=== PATIENT | female | born 1950 | race Caucasian/White ===

== ENCOUNTER 2018-12-15 14:38 | Inpatient (IN) | payer MEDICARE, BC ==
[2018-12-15] MEDS ORDERED: Dextran 70/Hypromellose/PF Ophth Soln 0.9 ML UD EYEBOTH PRN ×2 (15:57→18:00)
[2018-12-15] MEDS ORDERED: Acetaminophen/oxyCODONE 325-5 MG Tab PO PRN (15:57)
--- NOTE | 2018-12-15 17:11 | PCM.HP ---
H&P History of Present Illness - General Date of Service: 12/15/18 Admit Problem/Dx: Admission Diagnosis/Problem Admission Diagnosis/Problem Pleural effusion Source of Information: Patient, Old Records - History of Present Illness Initial Comments - Free Text/Narative: This is a 68-year-old female who was admitted to the hospital with shortness of breath, from new, right-sided, pleural effusion. The patient has known, stage IV , breast cancer, followswith Marry Mcadams M.D., outpatient. She underwent thoracentesis, which revealed about 1.6 liters of fluid. Fluid analysis is transudative per Light's criteria but cytology pos. Fluid was nonbloody. Received a dose of Lasix and diuresed further. She has not been on any Lasix in the past. SOB improved. Still not walking great, wants cane for at home or more narrow walker. Lives alone. Remote smoking hx. FH Breast CA. 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 Healing normally, sutures out. Clinically feeling better. No new concerns. The patient, due to physical deconditioning, would benefit from transitioning to a SNF or swing bed. REVIEW OF SYSTEMS: CONSTITUTIONAL: No fever or chills. RESPIRATORY: No new cough or dyspnea. CARDIOVASCULAR: No chest pain or palpitations. ABDOMEN: No belly pain. Not eatint a lot CENTRAL NERVOUS SYSTEM: No headache or dizziness. PHYSICAL EXAMINATION: VITAL SIGNS: Reviewed. CONSTITUTIONAL: No distress. RESPIRATORY: Bilateral air entry present. CARDIOVASCULAR SYSTEM: RRR, no mrg. ABDOMEN: Soft and nontender. Bowel sounds present. CENTRAL NERVOUS SYSTEM: Alert, oriented x3. Well healing distal amp scar R great toe. Results for CADE SHIELDS ( ) as of 12/15/2018 17:07 Ref. Range 12/15/2018 08:39 12/15/2018 11:12 WBC Latest Ref Range: 4.0 - 11.0 K/uL 8.1 RBC Latest Ref Range: 3.80 - 5.30 M/uL 3.92 Hemoglobin Latest Ref Range: 11.5 - 15.8 g/dL 11.3 (L) Hematocrit Latest Ref Range: 35.0 - 45.0 % 35.0 MCV Latest Ref Range: 80.0 - 98.0 fL 89.3 MCH Latest Ref Range: 25.5 - 34.0 pg 28.8 MCHC Latest Ref Range: 31.5 - 36.5 g/dL 32.3 RDW-CV Latest Ref Range: 11.5 - 15.5 % 21.5 (H) RDW-SD Latest Ref Range: 35.5 - 50.0 fl 69.1 (H) Platelet Count Latest Ref Range: 140 - 400 K/uL 273 MPV Latest Ref Range: 8.5 - 12.0 fL 9.0 Seg Neut Absolute Latest Ref Range: 1.8 - 8.0 K/uL 6.6 Band Absolute Latest Ref Range: 0.0 - 0.7 K/uL 1.1 (H) Lymphocytes Absolute Latest Ref Range: 0.8 - 4.1 K/uL 0.2 (L) Monocytes Absolute Latest Ref Range: 0.0 - 1.0 K/uL 0.3 Neutrophils Abs. (Segs and Bands) Latest Units: /uL 7,614 Neutrophils Percent Latest Units: % 81.0 Band Percent Latest Units: % 13.0 Lymphocytes Percent Latest Units: % 2.0 Monocytes Percent Latest Units: % 4.0 Platelet Morphology Unknown Normal Elliptocytes/Ovalocytes Unknown 1+ Glucose Latest Ref Range: 70 - 100 mg/dL 98 Sodium Latest Ref Range: 135 - 145 meq/L 131 (L) Potassium Latest Ref Range: 3.5 - 5.3 meq/L 3.2 (L) Chloride Latest Ref Range: 99 - 110 meq/L 97 (L) CO2 Latest Ref Range: 20 - 29 meq/L 26 Anion Gap with K Latest Ref Range: 6 - 20 meq/L 11 BUN Latest Ref Range: 6 - 22 mg/dL 15 Creatinine Latest Ref Range: 0.60 - 1.10 mg/dL 0.74 BUN/Creatinine Ratio Latest Ref Range: 10.0 - 25.0 20.3 Calcium Latest Ref Range: 8.5 - 10.5 mg/dL 9.3 Corrected Calcium Latest Ref Range: 8.5 - 10.5 mg/dL 10.2 Phosphorus Latest Ref Range: 2.5 - 4.5 mg/dL 2.8 Magnesium Latest Ref Range: 1.8 - 2.4 mg/dL 1.7 (L) Albumin Latest Ref Range: 3.5 - 5.0 g/dL 2.9 (L) eGFR Latest Ref Range: >=60 mL/min/1.73m2 >90 eGFR Non- Latest Ref Range: >=60 mL/min/1.73m2 78 Glucose POC Latest Ref Range: 70 - 100 mg/dL 81 ASSESSMENT: 1. Shortness of breath secondary to rightmalignant pleural effusion.Stage IV breast cancer. 2. Hypomagnesemia. 3. Status post left hallux amputation. Completed antibiotics, healing well, per podiatry service. 4. Hypertension. 5. Gout. 6. Hypothyroid. 7. Dyslipidemia. 8. Mood disorder. 9. Bladder instability. 10. Chronic steroid use. PLAN: Hypertension, on atenolol and chlorthalidone with parameters. Hypokalemia secondary to chlorthalidone, replaced. Depression on Wellbutrin. Gout prevention on allopurinol. Hypothyroidism, replaced. Dyslipidemia, on Zocor. Bladder spasms, on VESIcare. Continue close monitoring of her cardiorespiratory status. Further oncological plans perDr. Abbe, on Stuent trial. Reviewed fluid collection report along the right humerus NOS, monitor for now in patient with widespread mets PT for strengthening, plan to return home Full code May need to consider hospice eval at some point in future - Related Data Allergies/Adverse Reactions: Allergies Allergy/AdvReac Type Severity Reaction Status Date / Time amoxicillin Allergy Nausea and Verified 12/15/18 16:50 Vomiting clavulanic acid Allergy Nausea and Verified 12/15/18 16:50 [From Augmentin] Vomiting anesthesia Allergy Nausea and Uncoded 12/15/18 16:50 Vomiting sulfa-drugs Allergy Other Uncoded 12/15/18 16:49 Home Medications: Home Meds Acetaminophen [Acetaminophen Extra Strength] 500 mg PO Q6H PRN 12/15/18 [History ] Allopurinol [Zyloprim] 100 mg PO DAILY 12/15/18 [History] Aspirin 325 mg PO DAILY 12/15/18 [History] Atenolol 1 tab PO DAILY 12/15/18 [History] Chlorthalidone 50 mg PO DAILY 12/15/18 [History] Dextran 70/Hypromellose [Artificial Tears] 1 drop EYEBOTH Q4H PRN 12/15/18 [ History] FLUoxetine HCl [Fluoxetine HCl] 40 mg PO DAILY 12/15/18 [History] Levothyroxine 175 mcg PO ASDIRECTED 12/15/18 [History] Loperamide [Imodium] 2 mg PO ASDIRECTED 12/15/18 [History] Magnesium Oxide 400 mg PO DAILY 12/15/18 [History] Multivitamin [Daily Multiple Vitamin] 1 tab PO DAILY 12/15/18 [History] Non-Formulary Medication [NF Drug] 1 cap PO DAILY 12/15/18 [History] Nystatin 100,000 units TOP BID PRN 12/15/18 [History] Phentermine HCl 37.5 mg PO DAILY 12/15/18 [History] Potassium Chloride [K-Tab] 2 tab PO BID 12/15/18 [History] Prochlorperazine [Compazine] 10 mg PO QID PRN 12/15/18 [History] Psyllium [Metamucil] 4 cap PO BEDTIME 12/15/18 [History] Sennosides/Docusate Sodium [Senna-Docusate Sodium Tablet] 1 tab PO BID PRN 12/15 [History] Simvastatin 10 mg PO BEDTIME 12/15/18 [History] Solifenacin [Vesicare] 5 mg PO DAILY 12/15/18 [History] Topiramate 100 mg PO BID 12/15/18 [History] buPROPion HCl [Wellbutrin Xl] 300 mg PO DAILY 12/15/18 [History] cycloSPORINE [Restasis] 1 each EYEBOTH BID PRN 12/15/18 [History] metFORMIN [Glucophage XR] 1 tab PO BID 12/15/18 [History] oxyCODONE HCl/Acetaminophen [Oxycodone-Acetaminophen 5-325] 1 tab PO Q6H PRN [History] predniSONE [Prednisone] 10 mg PO DAILY 12/15/18 [History] Past Medical History HEENT History: Reports: Cataract Respiratory History: Reports: Sleep Apnea Genitourinary History: Reports: Diabetic Nephropathy Musculoskeletal History: Reports: Amputation Endocrine/Metabolic History: Reports: Diabetes, Type II, Hypothyroidism Oncologic (Cancer) History: Reports: Breast, Metastatic - Past Surgical History HEENT Surgical History: Reports: Cataract Surgery Other HEENT Surgeries/Procedures: both eyes Respiratory Surgical History: Reports: Thoracentesis, Other (See Below) Other Respiratory Surgeries/Procedures: bronchoscopy GI Surgical History: Reports: Bariatric Procedure, Cholecystectomy Female Surgical History: Reports: Mastectomy, Other (See Below) Other Female Surgeries/Procedures: Right breast lumpectomy 2006, Right mastectomy Endocrine Surgical History: Reports: Thyroidectomy Musculoskeletal Surgical History: Reports: Amputation, Other (See Below) Other Musculoskeletal Surgeries/Procedures:: right hallux partial Oncologic Surgical History: Reports: Mastectomy Social & Family History - Family History Family Medical History: Noncontributory - Tobacco Use Smoking Status *Q: Former Smoker Years of Tobacco use: 2 Packs/Tins Daily: 1 Used Tobacco, but Quit: No Second Hand Smoke Exposure: No - Caffeine Use Caffeine Use: Reports: None - Recreational Drug Use Recreational Drug Use: No H&P Review of Systems - Review of Systems: Review Of Systems: See Below Exam - Exam Exam: See Below - Vital Signs Weight: 86.455 kg Problem List Initiated/Reviewed/Updated: Yes Orders Last 24hrs: Active Orders 24 hr Category Date Time Status Patient Status [ADT] Routine ADT 12/15/18 15:24 Active Acetaminophen [Tylenol Extra Strength] Med 12/15/18 15:57 Ordered 500 mg PO Q6H PRN Acetaminophen/oxyCODONE [Percocet 325-5 MG] Med 12/15/18 15:57 Ordered 1 tab PO Q6H PRN Allopurinol [Zyloprim] Med 12/16/18 08:00 Ordered 100 mg PO DAILY Aspirin [Aspirin] Med 12/16/18 08:00 Ordered 325 mg PO DAILY Atenolol [Tenormin] Med 12/16/18 08:00 Ordered 1 tab PO DAILY Chlorthalidone [Chlorthalidone] Med 12/16/18 08:00 Ordered 50 mg PO DAILY Dextran 70/Hypromellose [Artificial Tears] Med 12/15/18 15:57 Ordered 1 drop EYEBOTH Q4H PRN Docusate Sodium/Sennosides [Senna Plus] Med 12/15/18 15:57 Ordered 1 tab PO BID PRN FLUoxetine HCl [Fluoxetine HCl] Med 12/16/18 08:00 Ordered 40 mg PO DAILY Levothyroxine Med 12/15/18 16:00 Ordered 175 mcg PO ASDIRECTED Loperamide [Imodium] Med 12/15/18 16:00 Ordered 2 mg PO ASDIRECTED Magnesium Oxide Med 12/16/18 08:00 Ordered 400 mg PO DAILY Multivitamin [Daily Multiple Vitamin] Med 12/16/18 08:00 Ordered 1 tab PO DAILY Non-Formulary Medication [NF Drug] Med 12/16/18 08:00 Ordered 1 cap PO DAILY Nystatin [Nystatin] Med 12/15/18 15:57 Ordered 100,000 units TOP BID PRN Phentermine HCl [Phentermine HCl] Med 12/16/18 08:00 Ordered 37.5 mg PO DAILY Potassium Chloride [Klor-Con 10] Med 12/15/18 20:00 Ordered 2 tab PO BID Prochlorperazine [Compazine] Med 12/15/18 15:57 Ordered 10 mg PO QID PRN Psyllium [Metamucil] Med 12/15/18 20:00 Ordered 4 cap PO BEDTIME Simvastatin [Zocor] Med 12/15/18 20:00 Ordered 10 mg PO BEDTIME Solifenacin [Vesicare] Med 12/16/18 08:00 Ordered 5 mg PO DAILY Topiramate [Topiramate] Med 12/15/18 20:00 Ordered 100 mg PO BID buPROPion HCl [Wellbutrin Xl] Med 12/16/18 08:00 Ordered 300 mg PO DAILY cycloSPORINE [Restasis] Med 12/15/18 15:57 Ordered 1 each EYEBOTH BID PRN metFORMIN [Glucophage XR] Med 12/15/18 20:00 Ordered 1 tab PO BID predniSONE Med 12/16/18 08:00 Ordered 10 mg PO DAILY Medication Orders Acetaminophen (Tylenol Extra Strength) 500 mg PO Q6H PRN PRN Reason: mild pain Allopurinol (Zyloprim) 100 mg PO DAILY [facility] Atenolol (Tenormin) mg PO DAILY [facility] Levothyroxine Sodium (Levothyroxine) 175 mcg PO ASDIRECTED [facility] Loperamide HCl (Imodium) 2 mg PO ASDIRECTED [facility] Magnesium Oxide (Magnesium Oxide) 400 mg PO DAILY [facility] Non-Formulary Medication (Aspirin [Aspirin]) 325 mg PO DAILY [facility] Non-Formulary Medication (Bupropion Hcl [Wellbutrin Xl]) 300 mg PO DAILY [facility] Non-Formulary Medication (Chlorthalidone [Chlorthalidone]) 50 mg PO DAILY [facility] Non-Formulary Medication (Cyclosporine [Restasis]) 1 each EYEBOTH BID PRN PRN Reason: Dry Eyes Non-Formulary Medication (Dextran 70/Hypromellose [Artificial Tears]) 1 drop EYEBOTH Q4H PRN PRN Reason: Dry Eyes Non-Formulary Medication (Fluoxetine Hcl [Fluoxetine Hcl]) 40 mg PO DAILY [facility] Non-Formulary Medication (Metformin [Glucophage Xr]) 1 tab PO BID [facility] Non-Formulary Medication (Multivitamin [Daily Multiple Vitamin]) 1 tab PO DAILY [facility] Non-Formulary Medication (Nf Drug) each PO DAILY [facility] Non-Formulary Medication (Nystatin [Nystatin]) 100,000 units TOP BID PRN PRN Reason: Itching Non-Formulary Medication (Phentermine Hcl [Phentermine Hcl]) 37.5 mg PO DAILY [facility] Non-Formulary Medication (Prochlorperazine [Compazine]) 10 mg PO QID PRN PRN Reason: Nausea/Vomiting Non-Formulary Medication (Topiramate [Topiramate]) 100 mg PO BID [facility] Oxycodone/Acetaminophen (Percocet 325-5 Mg) 1 tab PO Q6H PRN PRN Reason: moderate pain Potassium Chloride (Klor-Con 10) meq PO BID [facility] Prednisone (Prednisone) 10 mg PO DAILY [facility] Psyllium Hydrophilic Mucilloid (Metamucil) gm PO BEDTIME [facility] Senna/Docusate Sodium (Senna Plus) 1 tab PO BID PRN PRN Reason: Constipation Simvastatin (Zocor) 10 mg PO BEDTIME [facility] Solifenacin (Vesicare) 5 mg PO DAILY [facility]
[2018-12-15] MEDS ORDERED: Ondansetron 4 MG Tab.DIS PO PRN (17:13)
[2018-12-15] MEDS ORDERED: metFORMIN 500 MG Tab PO SCH (18:00)
[2018-12-15] MEDS: Miconazole 2% Top Powder 45 GM Container TOP PRN (20:14)
[2018-12-15] MEDS: Topiramate 50 MG Tab PO SCH (20:16)
[2018-12-15] MEDS: Prochlorperazine 5 MG Tab PO PRN (20:16)
[2018-12-15] MEDS: Psyllium 0.52 GM Cap PO SCH (20:17)
[2018-12-15] MEDS: Simvastatin 10 MG Tab PO SCH (20:18)
[2018-12-15] MEDS: Potassium Chloride 20 MEQ Tab.ER PO SCH (20:18)
[2018-12-16] MEDS ORDERED: Non-Formulary Medication 1 Each PO SCH (08:00)
[2018-12-16] MEDS: Topiramate 50 MG Tab PO SCH ×2 (08:19→19:23)
[2018-12-16] MEDS: FLUoxetine 20 MG Cap PO SCH (08:19)
[2018-12-16] MEDS: Aspirin 325 MG Tab.EC PO SCH (08:19)
[2018-12-16] MEDS: Potassium Chloride 20 MEQ Tab.ER PO SCH ×2 (08:20→19:23)
[2018-12-16] MEDS: Allopurinol 100 MG Tab PO SCH (08:20)
[2018-12-16] MEDS: Multivitamin, Stress Formula with Zinc Tab PO SCH (08:20)
[2018-12-16] MEDS: Atenolol 50 MG Tab PO SCH (08:20)
[2018-12-16] MEDS: Magnesium Oxide 400 MG Tab PO SCH (08:20)
[2018-12-16] MEDS: predniSONE 10 MG Tab PO SCH (08:20)
[2018-12-16] MEDS: buPROPion 150 MG Tab.ER PO SCH (08:22)
[2018-12-16] MEDS: CHLORTHALIDONE 50 MG PO SCH (08:24)
[2018-12-16] MEDS: PHENTERMINE 37.5 MG PO SCH (08:25)
[2018-12-16] MEDS: [UNRECOGNIZED DRUG - OTHER] PO SCH (08:26)
[2018-12-16] MEDS ORDERED: [UNRECOGNIZED DRUG - OTHER] EYEBOTH PRN (09:31)
[2018-12-16] MEDS: Simvastatin 10 MG Tab PO SCH (19:24)
[2018-12-16] MEDS: Psyllium 0.52 GM Cap PO SCH (19:24)
[2018-12-17] MEDS: FLUoxetine 20 MG Cap PO SCH (07:38)
[2018-12-17] MEDS: buPROPion 150 MG Tab.ER PO SCH (07:38)
[2018-12-17] MEDS: Magnesium Oxide 400 MG Tab PO SCH (07:38)
[2018-12-17] MEDS: predniSONE 10 MG Tab PO SCH (07:39)
[2018-12-17] MEDS: Allopurinol 100 MG Tab PO SCH (07:39)
[2018-12-17] MEDS: Atenolol 50 MG Tab PO SCH (07:39)
[2018-12-17] MEDS: Topiramate 50 MG Tab PO SCH ×2 (07:39→20:05)
[2018-12-17] MEDS: Multivitamin, Stress Formula with Zinc Tab PO SCH (07:39)
[2018-12-17] MEDS: Potassium Chloride 20 MEQ Tab.ER PO SCH ×2 (07:39→20:06)
[2018-12-17] MEDS: [UNRECOGNIZED DRUG - OTHER] PO SCH (07:40)
[2018-12-17] MEDS: CHLORTHALIDONE 50 MG PO SCH (07:40)
[2018-12-17] MEDS: Aspirin 325 MG Tab.EC PO SCH (07:41)
[2018-12-17] MEDS: PHENTERMINE 37.5 MG PO SCH (07:41)
[2018-12-17] MEDS: Miconazole 2% Top Powder 45 GM Container TOP PRN (07:54)
[2018-12-17] MEDS: Psyllium 0.52 GM Cap PO SCH (20:05)
[2018-12-17] MEDS: Simvastatin 10 MG Tab PO SCH (20:06)
[2018-12-18] MEDS: Loperamide 2 MG Cap PO PRN (04:05)
[2018-12-18] MEDS: Topiramate 50 MG Tab PO SCH ×2 (07:33→19:58)
[2018-12-18] MEDS: Magnesium Oxide 400 MG Tab PO SCH (07:33)
[2018-12-18] MEDS: Aspirin 325 MG Tab.EC PO SCH (07:33)
[2018-12-18] MEDS: buPROPion 150 MG Tab.ER PO SCH (07:33)
[2018-12-18] MEDS: Atenolol 50 MG Tab PO SCH (07:33)
[2018-12-18] MEDS: FLUoxetine 20 MG Cap PO SCH (07:34)
[2018-12-18] MEDS: Allopurinol 100 MG Tab PO SCH (07:34)
[2018-12-18] MEDS: Potassium Chloride 20 MEQ Tab.ER PO SCH ×2 (07:34→19:57)
[2018-12-18] MEDS: Multivitamin, Stress Formula with Zinc Tab PO SCH (07:35)
[2018-12-18] MEDS: Loperamide 2 MG Cap PO SCH ×2 (07:35→19:58)
[2018-12-18] MEDS: [UNRECOGNIZED DRUG - OTHER] PO SCH (07:36)
[2018-12-18] MEDS: predniSONE 10 MG Tab PO SCH (07:36)
[2018-12-18] MEDS: CHLORTHALIDONE 50 MG PO SCH (07:38)
[2018-12-18] MEDS: PHENTERMINE 37.5 MG PO SCH (07:39)
[2018-12-18] MEDS: Miconazole 2% Top Powder 45 GM Container TOP PRN (07:48)
[2018-12-18] MEDS: Psyllium 0.52 GM Cap PO SCH (19:38)
[2018-12-18] MEDS: Simvastatin 10 MG Tab PO SCH (19:57)
[2018-12-19] MEDS: Loperamide 2 MG Cap PO PRN ×2 (01:07→11:10)
[2018-12-19] MEDS: Miconazole 2% Top Powder 45 GM Container TOP PRN (11:09)
[2018-12-19] MEDS: Multivitamin, Stress Formula with Zinc Tab PO SCH (11:09)
[2018-12-19] MEDS: buPROPion 150 MG Tab.ER PO SCH (11:09)
[2018-12-19] MEDS: Potassium Chloride 20 MEQ Tab.ER PO SCH ×2 (11:09→19:30)
[2018-12-19] MEDS: FLUoxetine 20 MG Cap PO SCH (11:10)
[2018-12-19] MEDS: predniSONE 10 MG Tab PO SCH (11:10)
[2018-12-19] MEDS: Aspirin 325 MG Tab.EC PO SCH (11:10)
[2018-12-19] MEDS: Magnesium Oxide 400 MG Tab PO SCH (11:10)
[2018-12-19] MEDS: Atenolol 50 MG Tab PO SCH (11:10)
[2018-12-19] MEDS: PHENTERMINE 37.5 MG PO SCH (11:11)
[2018-12-19] MEDS: Topiramate 50 MG Tab PO SCH ×2 (11:11→19:31)
[2018-12-19] MEDS: Allopurinol 100 MG Tab PO SCH (11:11)
[2018-12-19] MEDS: [UNRECOGNIZED DRUG - OTHER] PO SCH (11:11)
[2018-12-19] MEDS: CHLORTHALIDONE 50 MG PO SCH (11:19)
[2018-12-19] MEDS: Simvastatin 10 MG Tab PO SCH (19:31)
[2018-12-19] MEDS: Psyllium 0.52 GM Cap PO SCH (19:31)
[2018-12-19] MEDS: Acetaminophen 500 MG Tab PO PRN (19:38)
[2018-12-20] MEDS: PHENTERMINE 37.5 MG PO SCH (08:26)
[2018-12-20] MEDS: [UNRECOGNIZED DRUG - OTHER] PO SCH (08:26)
[2018-12-20] MEDS: CHLORTHALIDONE 50 MG PO SCH (08:27)
[2018-12-20] MEDS: Potassium Chloride 20 MEQ Tab.ER PO SCH ×2 (08:28→19:46)
[2018-12-20] MEDS: Topiramate 50 MG Tab PO SCH ×2 (08:29→19:46)
[2018-12-20] MEDS: buPROPion 150 MG Tab.ER PO SCH (08:29)
[2018-12-20] MEDS: Aspirin 325 MG Tab.EC PO SCH (08:29)
[2018-12-20] MEDS: Allopurinol 100 MG Tab PO SCH (08:29)
[2018-12-20] MEDS: predniSONE 10 MG Tab PO SCH (08:30)
[2018-12-20] MEDS: Multivitamin, Stress Formula with Zinc Tab PO SCH (08:30)
[2018-12-20] MEDS: FLUoxetine 20 MG Cap PO SCH (08:30)
[2018-12-20] MEDS: Atenolol 50 MG Tab PO SCH (08:32)
[2018-12-20] MEDS: Magnesium Oxide 400 MG Tab PO SCH (08:36)
[2018-12-20] MEDS: Loperamide 2 MG Cap PO PRN (08:40)
[2018-12-20] MEDS: Simvastatin 10 MG Tab PO SCH (19:46)
[2018-12-20] MEDS: Psyllium 0.52 GM Cap PO SCH (19:47)
[2018-12-20] MEDS: Loperamide 2 MG Cap PO SCH (20:31)
[2018-12-21] MEDS: Prochlorperazine 5 MG Tab PO PRN (05:25)
[2018-12-21] MEDS: Allopurinol 100 MG Tab PO SCH (12:37)
[2018-12-21] MEDS: FLUoxetine 20 MG Cap PO SCH (12:37)
[2018-12-21] MEDS: Magnesium Oxide 400 MG Tab PO SCH (12:37)
[2018-12-21] MEDS: Atenolol 50 MG Tab PO SCH (12:37)
[2018-12-21] MEDS: buPROPion 150 MG Tab.ER PO SCH (12:37)
[2018-12-21] MEDS: predniSONE 10 MG Tab PO SCH (12:37)
[2018-12-21] MEDS: Multivitamin, Stress Formula with Zinc Tab PO SCH (12:37)
[2018-12-21] MEDS: [UNRECOGNIZED DRUG - OTHER] PO SCH (12:38)
[2018-12-21] MEDS: Aspirin 325 MG Tab.EC PO SCH (12:38)
[2018-12-21] MEDS: PHENTERMINE 37.5 MG PO SCH (12:38)
[2018-12-21] MEDS: CHLORTHALIDONE 50 MG PO SCH (12:39)
[2018-12-21] MEDS: Topiramate 50 MG Tab PO SCH ×2 (12:44→20:08)
[2018-12-21] MEDS: Potassium Chloride 20 MEQ Tab.ER PO SCH (12:44)
[2018-12-21] MEDS: Potassium Chloride 10 MEQ Tab.ER PO SCH (18:18)
[2018-12-21] MEDS: Simvastatin 10 MG Tab PO SCH (20:09)
[2018-12-21] MEDS: Psyllium 0.52 GM Cap PO SCH (20:10)
[2018-12-22] MEDS: Loperamide 2 MG Cap PO SCH ×2 (04:31→08:25)
[2018-12-22] MEDS: PHENTERMINE 37.5 MG PO SCH (08:25)
[2018-12-22] MEDS: predniSONE 10 MG Tab PO SCH (08:25)
[2018-12-22] MEDS: Multivitamin, Stress Formula with Zinc Tab PO SCH (08:25)
[2018-12-22] MEDS: Aspirin 325 MG Tab.EC PO SCH (08:25)
[2018-12-22] MEDS: Miconazole 2% Top Powder 45 GM Container TOP PRN (08:25)
[2018-12-22] MEDS: buPROPion 150 MG Tab.ER PO SCH (08:26)
[2018-12-22] MEDS: Topiramate 50 MG Tab PO SCH ×2 (08:26→19:45)
[2018-12-22] MEDS: FLUoxetine 20 MG Cap PO SCH (08:26)
[2018-12-22] MEDS: Allopurinol 100 MG Tab PO SCH (08:26)
[2018-12-22] MEDS: Atenolol 50 MG Tab PO SCH (08:26)
[2018-12-22] MEDS: Magnesium Oxide 400 MG Tab PO SCH (08:26)
[2018-12-22] MEDS: Potassium Chloride 10 MEQ Tab.ER PO SCH ×2 (08:26→17:58)
[2018-12-22] MEDS: CHLORTHALIDONE 50 MG PO SCH (08:27)
[2018-12-22] MEDS: [UNRECOGNIZED DRUG - OTHER] PO SCH (08:27)
[2018-12-22] MEDS: Psyllium 0.52 GM Cap PO SCH (19:45)
[2018-12-22] MEDS: Simvastatin 10 MG Tab PO SCH (19:45)
[2018-12-23] MEDS: [UNRECOGNIZED DRUG - OTHER] PO SCH (09:07)
[2018-12-23] MEDS: PHENTERMINE 37.5 MG PO SCH (09:08)
[2018-12-23] MEDS: Miconazole 2% Top Powder 45 GM Container TOP PRN (09:09)
[2018-12-23] MEDS: FLUoxetine 20 MG Cap PO SCH (09:09)
[2018-12-23] MEDS: CHLORTHALIDONE 50 MG PO SCH (09:09)
[2018-12-23] MEDS: Topiramate 50 MG Tab PO SCH ×2 (09:10→20:58)
[2018-12-23] MEDS: predniSONE 10 MG Tab PO SCH (09:10)
[2018-12-23] MEDS: Aspirin 325 MG Tab.EC PO SCH (09:10)
[2018-12-23] MEDS: Atenolol 50 MG Tab PO SCH (09:10)
[2018-12-23] MEDS: Allopurinol 100 MG Tab PO SCH (09:11)
[2018-12-23] MEDS: Potassium Chloride 10 MEQ Tab.ER PO SCH ×2 (09:11→17:59)
[2018-12-23] MEDS: Multivitamin, Stress Formula with Zinc Tab PO SCH (09:11)
[2018-12-23] MEDS: buPROPion 150 MG Tab.ER PO SCH (09:12)
[2018-12-23] MEDS: Magnesium Oxide 400 MG Tab PO SCH (09:12)
[2018-12-23] MEDS: Simvastatin 10 MG Tab PO SCH (20:59)
[2018-12-23] MEDS: Psyllium 0.52 GM Cap PO SCH (23:35)
[2018-12-24] MEDS: Acetaminophen 500 MG Tab PO PRN ×2 (07:39→20:19)
[2018-12-24] MEDS: Topiramate 50 MG Tab PO SCH ×2 (08:55→20:20)
[2018-12-24] MEDS: FLUoxetine 20 MG Cap PO SCH (08:55)
[2018-12-24] MEDS: Multivitamin, Stress Formula with Zinc Tab PO SCH (08:55)
[2018-12-24] MEDS: Aspirin 325 MG Tab.EC PO SCH (08:55)
[2018-12-24] MEDS: predniSONE 10 MG Tab PO SCH (08:55)
[2018-12-24] MEDS: Atenolol 50 MG Tab PO SCH (08:55)
[2018-12-24] MEDS: buPROPion 150 MG Tab.ER PO SCH (08:55)
[2018-12-24] MEDS: Magnesium Oxide 400 MG Tab PO SCH (08:55)
[2018-12-24] MEDS: Allopurinol 100 MG Tab PO SCH (08:55)
[2018-12-24] MEDS: Potassium Chloride 10 MEQ Tab.ER PO SCH ×2 (08:57→17:37)
[2018-12-24] MEDS: CHLORTHALIDONE 50 MG PO SCH (08:58)
[2018-12-24] MEDS: PHENTERMINE 37.5 MG PO SCH (12:00)
[2018-12-24] MEDS: [UNRECOGNIZED DRUG - OTHER] PO SCH (16:18)
[2018-12-24] MEDS: Psyllium 0.52 GM Cap PO SCH (20:20)
[2018-12-24] MEDS: Simvastatin 10 MG Tab PO SCH (20:21)
[2018-12-25] MEDS: Magnesium Oxide 400 MG Tab PO SCH (07:56)
[2018-12-25] MEDS: Aspirin 325 MG Tab.EC PO SCH (07:56)
[2018-12-25] MEDS: Topiramate 50 MG Tab PO SCH ×2 (07:56→19:43)
[2018-12-25] MEDS: Atenolol 50 MG Tab PO SCH (07:56)
[2018-12-25] MEDS: FLUoxetine 20 MG Cap PO SCH (07:56)
[2018-12-25] MEDS: predniSONE 10 MG Tab PO SCH (07:56)
[2018-12-25] MEDS: Potassium Chloride 10 MEQ Tab.ER PO SCH ×2 (07:57→17:58)
[2018-12-25] MEDS: Allopurinol 100 MG Tab PO SCH (07:57)
[2018-12-25] MEDS: buPROPion 150 MG Tab.ER PO SCH (07:57)
[2018-12-25] MEDS: Multivitamin, Stress Formula with Zinc Tab PO SCH (07:57)
[2018-12-25] MEDS: CHLORTHALIDONE 50 MG PO SCH (07:58)
[2018-12-25] MEDS: PHENTERMINE 37.5 MG PO SCH (07:59)
[2018-12-25] MEDS: Psyllium 0.52 GM Cap PO SCH (19:42)
[2018-12-25] MEDS: Simvastatin 10 MG Tab PO SCH (19:42)
[2018-12-26] MEDS: Topiramate 50 MG Tab PO SCH ×2 (08:05→20:38)
[2018-12-26] MEDS: Multivitamin, Stress Formula with Zinc Tab PO SCH (08:06)
[2018-12-26] MEDS: Potassium Chloride 10 MEQ Tab.ER PO SCH ×2 (08:06→17:22)
[2018-12-26] MEDS: Aspirin 325 MG Tab.EC PO SCH (08:06)
[2018-12-26] MEDS: buPROPion 150 MG Tab.ER PO SCH (08:06)
[2018-12-26] MEDS: FLUoxetine 20 MG Cap PO SCH (08:07)
[2018-12-26] MEDS: predniSONE 10 MG Tab PO SCH (08:07)
[2018-12-26] MEDS: Atenolol 50 MG Tab PO SCH (08:07)
[2018-12-26] MEDS: Magnesium Oxide 400 MG Tab PO SCH (08:07)
[2018-12-26] MEDS: Allopurinol 100 MG Tab PO SCH (08:07)
[2018-12-26] MEDS: CHLORTHALIDONE 50 MG PO SCH (08:08)
[2018-12-26] MEDS: PHENTERMINE 37.5 MG PO SCH (08:08)
[2018-12-26] MEDS: Acetaminophen 500 MG Tab PO PRN (16:54)
[2018-12-26] MEDS: Psyllium 0.52 GM Cap PO SCH (20:38)
[2018-12-26] MEDS: Simvastatin 10 MG Tab PO SCH (20:38)
[2018-12-27] MEDS: Topiramate 50 MG Tab PO SCH ×2 (08:19→19:58)
[2018-12-27] MEDS: Aspirin 325 MG Tab.EC PO SCH (08:19)
[2018-12-27] MEDS: Allopurinol 100 MG Tab PO SCH (08:19)
[2018-12-27] MEDS: buPROPion 150 MG Tab.ER PO SCH (08:19)
[2018-12-27] MEDS: Multivitamin, Stress Formula with Zinc Tab PO SCH (08:19)
[2018-12-27] MEDS: FLUoxetine 20 MG Cap PO SCH (08:19)
[2018-12-27] MEDS: Atenolol 50 MG Tab PO SCH (08:19)
[2018-12-27] MEDS: Potassium Chloride 10 MEQ Tab.ER PO SCH ×2 (08:19→17:52)
[2018-12-27] MEDS: PHENTERMINE 37.5 MG PO SCH (08:20)
[2018-12-27] MEDS: predniSONE 10 MG Tab PO SCH (08:20)
[2018-12-27] MEDS: Magnesium Oxide 400 MG Tab PO SCH (08:20)
[2018-12-27] MEDS: Miconazole 2% Top Powder 45 GM Container TOP PRN (08:21)
[2018-12-27] MEDS: Acetaminophen 500 MG Tab PO PRN (08:23)
[2018-12-27] MEDS: Chlorthalidone 25 MG Tab PO SCH (08:43)
[2018-12-27] MEDS ORDERED: Calcium Carbonate 750 MG Tab.Chew PO PRN (13:59)
[2018-12-27] MEDS: Simvastatin 10 MG Tab PO SCH (19:58)
[2018-12-27] MEDS: Psyllium 0.52 GM Cap PO SCH (19:59)
[2018-12-28] MEDS: predniSONE 10 MG Tab PO SCH (08:25)
[2018-12-28] MEDS: FLUoxetine 20 MG Cap PO SCH (08:25)
[2018-12-28] MEDS: Magnesium Oxide 400 MG Tab PO SCH (08:25)
[2018-12-28] MEDS: Atenolol 50 MG Tab PO SCH (08:26)
[2018-12-28] MEDS: Allopurinol 100 MG Tab PO SCH (08:26)
[2018-12-28] MEDS: buPROPion 150 MG Tab.ER PO SCH (08:26)
[2018-12-28] MEDS: Aspirin 325 MG Tab.EC PO SCH (08:26)
[2018-12-28] MEDS: Topiramate 50 MG Tab PO SCH ×2 (08:26→20:09)
[2018-12-28] MEDS: Potassium Chloride 10 MEQ Tab.ER PO SCH ×2 (08:26→18:37)
[2018-12-28] MEDS: PHENTERMINE 37.5 MG PO SCH (08:26)
[2018-12-28] MEDS: Chlorthalidone 25 MG Tab PO SCH (08:27)
[2018-12-28] MEDS: Multivitamin, Stress Formula with Zinc Tab PO SCH (08:27)
[2018-12-28] MEDS: Prochlorperazine 5 MG Tab PO PRN (11:58)
[2018-12-28] MEDS: Simvastatin 10 MG Tab PO SCH (20:09)
[2018-12-28] MEDS: Psyllium 0.52 GM Cap PO SCH (20:10)
[2018-12-29] MEDS: Multivitamin, Stress Formula with Zinc Tab PO SCH (08:40)
[2018-12-29] MEDS: predniSONE 10 MG Tab PO SCH (08:40)
[2018-12-29] MEDS: Magnesium Oxide 400 MG Tab PO SCH (08:40)
[2018-12-29] MEDS: Potassium Chloride 10 MEQ Tab.ER PO SCH ×2 (08:41→18:10)
[2018-12-29] MEDS: Allopurinol 100 MG Tab PO SCH (08:41)
[2018-12-29] MEDS: Atenolol 50 MG Tab PO SCH (08:41)
[2018-12-29] MEDS: Aspirin 325 MG Tab.EC PO SCH (08:41)
[2018-12-29] MEDS: Topiramate 50 MG Tab PO SCH ×2 (08:41→20:28)
[2018-12-29] MEDS: buPROPion 150 MG Tab.ER PO SCH (08:41)
[2018-12-29] MEDS: FLUoxetine 20 MG Cap PO SCH (08:41)
[2018-12-29] MEDS: Chlorthalidone 25 MG Tab PO SCH (08:42)
[2018-12-29] MEDS: PHENTERMINE 37.5 MG PO SCH (08:46)
[2018-12-29] MEDS: Simvastatin 10 MG Tab PO SCH (20:28)
[2018-12-29] MEDS: Psyllium 0.52 GM Cap PO SCH (20:48)
[2018-12-30] MEDS: Magnesium Oxide 400 MG Tab PO SCH (09:27)
[2018-12-30] MEDS: Potassium Chloride 10 MEQ Tab.ER PO SCH ×2 (09:27→18:45)
[2018-12-30] MEDS: FLUoxetine 20 MG Cap PO SCH (09:27)
[2018-12-30] MEDS: Chlorthalidone 25 MG Tab PO SCH (09:27)
[2018-12-30] MEDS: Multivitamin, Stress Formula with Zinc Tab PO SCH (09:28)
[2018-12-30] MEDS: Allopurinol 100 MG Tab PO SCH (09:28)
[2018-12-30] MEDS: Aspirin 325 MG Tab.EC PO SCH (09:28)
[2018-12-30] MEDS: Topiramate 50 MG Tab PO SCH ×2 (09:29→19:50)
[2018-12-30] MEDS: predniSONE 10 MG Tab PO SCH (09:29)
[2018-12-30] MEDS: buPROPion 150 MG Tab.ER PO SCH (09:29)
[2018-12-30] MEDS: PHENTERMINE 37.5 MG PO SCH (09:31)
[2018-12-30] MEDS: Atenolol 50 MG Tab PO SCH (09:31)
[2018-12-30] MEDS: Simvastatin 10 MG Tab PO SCH (19:50)
[2018-12-30] MEDS: Psyllium 0.52 GM Cap PO SCH (19:50)
[2018-12-31] MEDS: FLUoxetine 20 MG Cap PO SCH (08:20)
[2018-12-31] MEDS: Magnesium Oxide 400 MG Tab PO SCH (08:20)
[2018-12-31] MEDS: Allopurinol 100 MG Tab PO SCH (08:20)
[2018-12-31] MEDS: buPROPion 150 MG Tab.ER PO SCH (08:20)
[2018-12-31] MEDS: Atenolol 50 MG Tab PO SCH (08:20)
[2018-12-31] MEDS: predniSONE 10 MG Tab PO SCH (08:20)
[2018-12-31] MEDS: Multivitamin, Stress Formula with Zinc Tab PO SCH (08:20)
[2018-12-31] MEDS: Aspirin 325 MG Tab.EC PO SCH (08:21)
[2018-12-31] MEDS: Topiramate 50 MG Tab PO SCH ×2 (08:21→19:41)
[2018-12-31] MEDS: Potassium Chloride 10 MEQ Tab.ER PO SCH ×2 (08:21→17:01)
[2018-12-31] MEDS: Chlorthalidone 25 MG Tab PO SCH (08:23)
[2018-12-31] MEDS: PHENTERMINE 37.5 MG PO SCH (08:24)
[2018-12-31] MEDS: Psyllium 0.52 GM Cap PO SCH (19:42)
[2018-12-31] MEDS: Simvastatin 10 MG Tab PO SCH (19:42)
[2019-01-01] MEDS: FLUoxetine 20 MG Cap PO SCH (07:38)
[2019-01-01] MEDS: Atenolol 50 MG Tab PO SCH (07:38)
[2019-01-01] MEDS: Allopurinol 100 MG Tab PO SCH (07:38)
[2019-01-01] MEDS: Potassium Chloride 10 MEQ Tab.ER PO SCH ×2 (07:38→17:29)
[2019-01-01] MEDS: Chlorthalidone 25 MG Tab PO SCH (07:38)
[2019-01-01] MEDS: Multivitamin, Stress Formula with Zinc Tab PO SCH (07:38)
[2019-01-01] MEDS: Magnesium Oxide 400 MG Tab PO SCH (07:39)
[2019-01-01] MEDS: Topiramate 50 MG Tab PO SCH ×2 (07:39→19:26)
[2019-01-01] MEDS: Aspirin 325 MG Tab.EC PO SCH (07:39)
[2019-01-01] MEDS: predniSONE 10 MG Tab PO SCH (07:39)
[2019-01-01] MEDS: buPROPion 150 MG Tab.ER PO SCH (07:39)
[2019-01-01] MEDS: PHENTERMINE 37.5 MG PO SCH (07:40)
[2019-01-01] MEDS: Simvastatin 10 MG Tab PO SCH (19:26)
[2019-01-01] MEDS: Psyllium 0.52 GM Cap PO SCH (19:27)
[2019-01-02] MEDS: Potassium Chloride 10 MEQ Tab.ER PO SCH ×2 (08:00→18:54)
[2019-01-02] MEDS: Topiramate 50 MG Tab PO SCH ×2 (08:00→20:44)
[2019-01-02] MEDS: Allopurinol 100 MG Tab PO SCH (08:00)
[2019-01-02] MEDS: buPROPion 150 MG Tab.ER PO SCH (08:00)
[2019-01-02] MEDS: Chlorthalidone 25 MG Tab PO SCH (08:00)
[2019-01-02] MEDS: FLUoxetine 20 MG Cap PO SCH (08:00)
[2019-01-02] MEDS: Aspirin 325 MG Tab.EC PO SCH (09:58)
[2019-01-02] MEDS: predniSONE 10 MG Tab PO SCH (09:59)
[2019-01-02] MEDS: Atenolol 50 MG Tab PO SCH (10:00)
[2019-01-02] MEDS: Multivitamin, Stress Formula with Zinc Tab PO SCH (10:00)
[2019-01-02] MEDS: Magnesium Oxide 400 MG Tab PO SCH (10:00)
[2019-01-02] MEDS: PHENTERMINE 37.5 MG PO SCH (10:07)
[2019-01-02] MEDS: Simvastatin 10 MG Tab PO SCH (20:44)
[2019-01-02] MEDS: Psyllium 0.52 GM Cap PO SCH (20:46)
[2019-01-03] MEDS: Acetaminophen 500 MG Tab PO PRN ×2 (00:59→17:49)
[2019-01-03] MEDS: buPROPion 150 MG Tab.ER PO SCH (08:47)
[2019-01-03] MEDS: predniSONE 10 MG Tab PO SCH (08:48)
[2019-01-03] MEDS: Atenolol 50 MG Tab PO SCH (08:48)
[2019-01-03] MEDS: Aspirin 325 MG Tab.EC PO SCH (08:48)
[2019-01-03] MEDS: Multivitamin, Stress Formula with Zinc Tab PO SCH (08:48)
[2019-01-03] MEDS: Potassium Chloride 10 MEQ Tab.ER PO SCH ×2 (08:48→17:49)
[2019-01-03] MEDS: Topiramate 50 MG Tab PO SCH ×2 (08:48→19:52)
[2019-01-03] MEDS: Magnesium Oxide 400 MG Tab PO SCH (08:48)
[2019-01-03] MEDS: FLUoxetine 20 MG Cap PO SCH (08:49)
[2019-01-03] MEDS: PHENTERMINE 37.5 MG PO SCH (08:49)
[2019-01-03] MEDS: Allopurinol 100 MG Tab PO SCH (08:49)
[2019-01-03] MEDS: Chlorthalidone 25 MG Tab PO SCH (08:55)
[2019-01-03] MEDS: Psyllium 0.52 GM Cap PO SCH (19:53)
[2019-01-03] MEDS: Simvastatin 10 MG Tab PO SCH (19:53)
[2019-01-04] MEDS: Magnesium Oxide 400 MG Tab PO SCH (08:31)
[2019-01-04] MEDS: Potassium Chloride 10 MEQ Tab.ER PO SCH ×2 (08:31→18:29)
[2019-01-04] MEDS: Aspirin 325 MG Tab.EC PO SCH (08:31)
[2019-01-04] MEDS: predniSONE 10 MG Tab PO SCH (08:32)
[2019-01-04] MEDS: FLUoxetine 20 MG Cap PO SCH (08:32)
[2019-01-04] MEDS: Atenolol 50 MG Tab PO SCH (08:32)
[2019-01-04] MEDS: Multivitamin, Stress Formula with Zinc Tab PO SCH (08:32)
[2019-01-04] MEDS: PHENTERMINE 37.5 MG PO SCH (08:32)
[2019-01-04] MEDS: buPROPion 150 MG Tab.ER PO SCH (08:33)
[2019-01-04] MEDS: Allopurinol 100 MG Tab PO SCH (08:33)
[2019-01-04] MEDS: Topiramate 50 MG Tab PO SCH ×2 (08:33→19:06)
[2019-01-04] MEDS: Chlorthalidone 25 MG Tab PO SCH (08:37)
[2019-01-04] MEDS: Acetaminophen 500 MG Tab PO PRN (08:41)
[2019-01-04] MEDS: Psyllium 0.52 GM Cap PO SCH (19:06)
[2019-01-04] MEDS: Simvastatin 10 MG Tab PO SCH (19:06)
[2019-01-05] MEDS: FLUoxetine 20 MG Cap PO SCH (09:15)
[2019-01-05] MEDS: Aspirin 325 MG Tab.EC PO SCH (09:16)
[2019-01-05] MEDS: Potassium Chloride 10 MEQ Tab.ER PO SCH (09:16)
[2019-01-05] MEDS: Magnesium Oxide 400 MG Tab PO SCH (09:16)
[2019-01-05] MEDS: Multivitamin, Stress Formula with Zinc Tab PO SCH (09:16)
[2019-01-05] MEDS: Allopurinol 100 MG Tab PO SCH (09:16)
[2019-01-05] MEDS: buPROPion 150 MG Tab.ER PO SCH (09:16)
[2019-01-05] MEDS: Topiramate 50 MG Tab PO SCH (09:16)
[2019-01-05] MEDS: Atenolol 50 MG Tab PO SCH (09:16)
[2019-01-05] MEDS: predniSONE 10 MG Tab PO SCH (09:16)
[2019-01-05] MEDS: PHENTERMINE 37.5 MG PO SCH (09:17)
[2019-01-05] MEDS: Chlorthalidone 25 MG Tab PO SCH (09:19)
--- NOTE | 2019-01-05 09:31 | PCM.DCSUM1 ---
Discharge Summary - Hospital Course Free Text/Narrative:: This is a 68-year-old female who was admitted to after d/c from hospital with shortness of breath, from new, right-sided, pleural effusion. The patient has known, stage IV, breast cancer, followswith Marry Mcadams M.D., outpatient. She underwent thoracentesis om [place], which revealed about 1.6 liters of fluid. t. SOB improved and stable here. Still not walking great, wants cane for at home or more narrow walker. PT has recommended 22" walker. Lives alone. Remote smoking hx. FH Breast CA. 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 Healing normally, sutures out. Clinically feeling better and stronger. No new concerns. REVIEW OF SYSTEMS: CONSTITUTIONAL: No fever or chills. RESPIRATORY: No new cough or dyspnea. CARDIOVASCULAR: No chest pain or palpitations. ABDOMEN: No belly pain. Not eatint a lot CENTRAL NERVOUS SYSTEM: No headache or dizziness. PHYSICAL EXAMINATION: VITAL SIGNS: Reviewed. CONSTITUTIONAL: No distress. RESPIRATORY: Bilateral air entry present. CARDIOVASCULAR SYSTEM: RRR, no mrg. ABDOMEN: Soft and nontender. Bowel sounds present. CENTRAL NERVOUS SYSTEM: Alert, oriented x3. Well healing distal amp scar R great toe. Results for CADE SHIELDS ( ) as of 12/15/2018 17:07 Ref. Range 12/15/2018 08:39 12/15/2018 11:12 WBC Latest Ref Range: 4.0 - 11.0 K/uL 8.1 RBC Latest Ref Range: 3.80 - 5.30 M/uL 3.92 Hemoglobin Latest Ref Range: 11.5 - 15.8 g/dL 11.3 (L) Hematocrit Latest Ref Range: 35.0 - 45.0 % 35.0 MCV Latest Ref Range: 80.0 - 98.0 fL 89.3 MCH Latest Ref Range: 25.5 - 34.0 pg 28.8 MCHC Latest Ref Range: 31.5 - 36.5 g/dL 32.3 RDW-CV Latest Ref Range: 11.5 - 15.5 % 21.5 (H) RDW-SD Latest Ref Range: 35.5 - 50.0 fl 69.1 (H) Platelet Count Latest Ref Range: 140 - 400 K/uL 273 MPV Latest Ref Range: 8.5 - 12.0 fL 9.0 Seg Neut Absolute Latest Ref Range: 1.8 - 8.0 K/uL 6.6 Band Absolute Latest Ref Range: 0.0 - 0.7 K/uL 1.1 (H) Lymphocytes Absolute Latest Ref Range: 0.8 - 4.1 K/uL 0.2 (L) Monocytes Absolute Latest Ref Range: 0.0 - 1.0 K/uL 0.3 Neutrophils Abs. (Segs and Bands) Latest Units: /uL 7,614 Neutrophils Percent Latest Units: % 81.0 Band Percent Latest Units: % 13.0 Lymphocytes Percent Latest Units: % 2.0 Monocytes Percent Latest Units: % 4.0 Platelet Morphology Unknown Normal Elliptocytes/Ovalocytes Unknown 1+ Glucose Latest Ref Range: 70 - 100 mg/dL 98 Sodium Latest Ref Range: 135 - 145 meq/L 131 (L) Potassium Latest Ref Range: 3.5 - 5.3 meq/L 3.2 (L) Chloride Latest Ref Range: 99 - 110 meq/L 97 (L) CO2 Latest Ref Range: 20 - 29 meq/L 26 Anion Gap with K Latest Ref Range: 6 - 20 meq/L 11 BUN Latest Ref Range: 6 - 22 mg/dL 15 Creatinine Latest Ref Range: 0.60 - 1.10 mg/dL 0.74 BUN/Creatinine Ratio Latest Ref Range: 10.0 - 25.0 20.3 Calcium Latest Ref Range: 8.5 - 10.5 mg/dL 9.3 Corrected Calcium Latest Ref Range: 8.5 - 10.5 mg/dL 10.2 Phosphorus Latest Ref Range: 2.5 - 4.5 mg/dL 2.8 Magnesium Latest Ref Range: 1.8 - 2.4 mg/dL 1.7 (L) Albumin Latest Ref Range: 3.5 - 5.0 g/dL 2.9 (L) eGFR Latest Ref Range: >=60 mL/min/1.73m2 >90 eGFR Non- Latest Ref Range: >=60 mL/min/1.73m2 78 Glucose POC Latest Ref Range: 70 - 100 mg/dL 81 Further oncological plans perDr. Abbe, on Stuent trial but not clear if she'll still qualify, has outpatient f/u with onc today in [place]. Fluid collection report along the right humerus NOS, monitor for now in patient with widespread mets PT for strengthening, plan to return home with new 22" 4 wheel walker Full code for now, may need to revisit in future May need to consider hospice eval at some point in future Diagnosis: Stroke: No - Discharge Data Discharge Date: 01/05/19 Discharge Disposition: Home, Self-Care 01 Condition: Good - Patient Summary/Data Consults: Consultations 12/15/18 17:13 OT Evaluation and Treatment [CONS] Routine PT Evaluation and Treatment [CONS] Routine - Discharge Plan *PRESCRIPTION DRUG MONITORING PROGRAM REVIEWED*: Not Applicable *COPY OF PRESCRIPTION DRUG MONITORING REPORT IN PATIENT TANIYA: Not Applicable Home Medications: Home Meds Acetaminophen [Acetaminophen Extra Strength] 500 mg PO Q6H PRN 12/15/18 [History ] Allopurinol [Zyloprim] 100 mg PO DAILY 12/15/18 [History] Aspirin 325 mg PO DAILY 12/15/18 [History] Atenolol 50 mg PO DAILY 12/15/18 [History] Chlorthalidone 50 mg PO DAILY 12/15/18 [History] Dextran 70/Hypromellose [Artificial Tears] 1 drop EYEBOTH Q4H PRN 12/15/18 [ History] FLUoxetine HCl [Fluoxetine HCl] 40 mg PO DAILY 12/15/18 [History] Levothyroxine 175 mcg PO ASDIRECTED 12/15/18 [History] Loperamide [Imodium] 2 mg PO ASDIRECTED 12/15/18 [History] Magnesium Oxide 400 mg PO DAILY 12/15/18 [History] Multivitamin [Daily Multiple Vitamin] 1 tab PO DAILY 12/15/18 [History] Nystatin 100,000 units TOP BID PRN 12/15/18 [History] Phentermine HCl 37.5 mg PO DAILY 12/15/18 [History] Potassium Chloride [K-Tab ER] 30 meq PO BID 12/15/18 [History] Prochlorperazine [Compazine] 10 mg PO QID PRN 12/15/18 [History] Psyllium [Metamucil] 4 cap PO BEDTIME 12/15/18 [History] SUNItinib Malate [Sutent] 50 mg PO DAILY 12/15/18 [History] Sennosides/Docusate Sodium [Senna-Docusate Sodium Tablet] 1 tab PO BID PRN 12/15 [History] Simvastatin 10 mg PO BEDTIME 12/15/18 [History] Solifenacin [Vesicare] 5 mg PO DAILY 12/15/18 [History] Topiramate 100 mg PO BID 12/15/18 [History] buPROPion HCl [Wellbutrin Xl] 300 mg PO DAILY 12/15/18 [History] cycloSPORINE [Restasis] 1 each EYEBOTH BID PRN 12/15/18 [History] metFORMIN [Glucophage XR] 500 mg PO BID 12/15/18 [History] oxyCODONE HCl/Acetaminophen [Oxycodone-Acetaminophen 5-325] 1 tab PO Q6H PRN [History] predniSONE [Prednisone] 10 mg PO DAILY 12/15/18 [History] Calcium Carbonate [Tums Extra Strength] 750 mg PO Q2H PRN tab.chew 01/05/19 [Rx ] Chlorthalidone 50 mg PO DAILY tablet 01/05/19 [Rx] Heparin Sodium [Heparin Lock Flush] 500 units IVPUSH Q28D syringe 01/05/19 [Rx] Loperamide [Imodium] 2 mg PO Q4H PRN cap 01/05/19 [Rx] Miconazole [Desenex 2%] 0 gm TOP BID PRN cont 01/05/19 [Rx] Ondansetron [Zofran ODT] 4 mg PO Q6H PRN tab.dis 01/05/19 [Rx] Potassium Chloride [Klor-Con 10] 30 meq PO BIDMEALS tab.er 01/05/19 [Rx] - Discharge Summary/Plan Comment DC Time >30 min.: No - Patient Data Vitals - Most Recent: Last Vital Signs Temp 36.4 C 01/05/19 06:00 Pulse 66 01/05/19 09:16 Resp 18 01/05/19 06:00 BP 122/62 01/05/19 09:16 Pulse Ox 96 01/05/19 06:00 Weight - Most Recent: 81.783 kg Lab Results - Last 24 hrs: Laboratory Results - last 24 hr 01/04/19 01/05/19 Range/Units 17:30 06:00 POC Glucose 122 H 97 (74-106) mg/dL Med Orders - Current: Current Medications Acetaminophen (Tylenol Extra Strength) 500 mg PO Q6H PRN PRN Reason: mild pain Last Admin: 01/04/19 08:41 Dose: 500 mg Allopurinol (Zyloprim) 100 mg PO DAILY [facility] Last Admin: 01/05/19 09:16 Dose: 100 mg Artificial Tears (Tears Naturale Free) 0 each EYEBOTH Q4H PRN PRN Reason: DRY EYES Aspirin (Ecotrin) 325 mg PO DAILY [facility] Last Admin: 01/05/19 09:16 Dose: 325 mg Atenolol (Tenormin) 50 mg PO DAILY [facility] Last Admin: 01/05/19 09:16 Dose: 50 mg Bupropion HCl (Wellbutrin Xl) 300 mg PO DAILY [facility] Last Admin: 01/05/19 09:16 Dose: 300 mg Calcium Carbonate/Glycine (Tums Extra Strength) 750 mg PO Q2H PRN PRN Reason: Dyspepsia Last Admin: 12/28/18 11:58 Dose: 750 mg Chlorthalidone (Chlorthalidone) 50 mg PO DAILY [facility] Last Admin: 01/05/19 09:19 Dose: Not Given Fluoxetine HCl (Prozac) 40 mg PO DAILY [facility] Last Admin: 01/05/19 09:15 Dose: 40 mg Heparin Sodium (Porcine) (Heparin Lock Flush 100 Units/Ml) 500 units IVPUSH Q28D [facility] Levothyroxine Sodium (Levothyroxine) 175 mcg PO [id number] [facility] Last Admin: 01/05/19 06:24 Dose: 175 mcg Loperamide HCl (Imodium) 2 - 4 mg PO ASDIRECTED [facility] Last Admin: 12/22/18 08:25 Dose: 4 mg Loperamide HCl (Imodium) 2 mg PO Q4H PRN PRN Reason: Diarrhea Last Admin: 12/20/18 08:40 Dose: 2 mg Magnesium Oxide (Magnesium Oxide) 400 mg PO DAILY [facility] Last Admin: 01/05/19 09:16 Dose: 400 mg Miconazole (Desenex 2%) 0 gm TOP BID PRN PRN Reason: ITCHING Last Admin: 12/27/18 08:21 Dose: 1 applic Phentermine 37.5 Mg (Own Med) 37.5 mg PO DAILY [facility] Last Admin: 01/05/19 09:17 Dose: 37.5 mg Restatis (Own Supply ()) 1 each EYEBOTH BID PRN PRN Reason: Dry Eyes Ondansetron HCl (Zofran Odt) 4 mg PO Q6H PRN PRN Reason: nausea, able to take PO Last Admin: 12/23/18 23:32 Dose: 4 mg Oxycodone/Acetaminophen (Percocet 325-5 Mg) 1 tab PO Q6H PRN PRN Reason: moderate pain Potassium Chloride (Klor-Con 10) 30 meq PO BIDMEALS [facility] Last Admin: 01/05/19 09:16 Dose: 30 meq Prednisone (Prednisone) 10 mg PO DAILY [facility] Last Admin: 01/05/19 09:16 Dose: 10 mg Prochlorperazine Maleate (Compazine) 10 mg PO QID PRN PRN Reason: NAUSEA/VOMITING Last Admin: 12/28/18 11:58 Dose: 10 mg Psyllium Hydrophilic Mucilloid (Metamucil) 2.08 gm PO BEDTIME [facility] Last Admin: 01/04/19 19:06 Dose: 2.08 gm Senna/Docusate Sodium (Senna Plus) 1 tab PO BID PRN PRN Reason: Constipation Simvastatin (Zocor) 10 mg PO BEDTIME [facility] Last Admin: 01/04/19 19:06 Dose: 10 mg Solifenacin (Vesicare) 5 mg PO DAILY [facility] Last Admin: 01/05/19 09:16 Dose: 5 mg Topiramate (Topamax) 100 mg PO BID [facility] Last Admin: 01/05/19 09:16 Dose: 100 mg Vitamin B Complex/Vit C/Vit E/Zinc (Stress Formula With Zinc) 1 tab PO DAILY [facility] Last Admin: 01/05/19 09:16 Dose: 1 tab Discontinued Medications Levothyroxine Sodium (Levothyroxine) 175 mcg PO [id number] [facility] Last Admin: 12/29/18 08:43 Dose: Not Given Metformin HCl (Glucophage) 1,000 mg PO BIDMEALS [facility] Last Admin: 12/15/18 18:46 Dose: Not Given Chlorthalidone 50 Mg (Own Med) 50 mg PO DAILY [facility] Stop: 12/26/18 12:00 Last Admin: 12/26/18 08:08 Dose: 50 mg Sutent 50 Mg Capsule -Wmp-Ixis-Kiqir- Sunitinib-Research Drug-Clinical Trial Use Own Med 0 each PO DAILY [facility] Last Admin: 12/24/18 16:18 Dose: Not Given Potassium Chloride (Klor-Con M20) 20 meq PO BID [facility] Last Admin: 12/21/18 12:44 Dose: 20 meq
== END 2019-01-05 10:15 | disposition home or self-care (01) | DRG 598 ==
LOC: VM.MS 15:45
PROVIDERS: ADMIT Family Medicine; ATTEND Family Medicine
DX: C50.911 Malignant neoplasm of unspecified site of right female breast (principal); J91.0 Malignant pleural effusion; E83.42 Hypomagnesemia; I10 Essential (primary) hypertension; M10.9 Gout, unspecified; E03.9 Hypothyroidism, unspecified; E78.5 Hyperlipidemia, unspecified; F39 Unspecified mood [affective] disorder; N32.89 Other specified disorders of bladder; E87.6 Hypokalemia; F32.9 Major depressive disorder, single episode, unspecified; G47.30 Sleep apnea, unspecified; E11.21 Type 2 diabetes mellitus with diabetic nephropathy; Z79.82 Long term (current) use of aspirin; Z79.84 Long term (current) use of oral hypoglycemic drugs; Z79.01 Long term (current) use of anticoagulants; Z87.891 Personal history of nicotine dependence; Z89.412 Acquired absence of left great toe; Z88.1 Allergy status to other antibiotic agents; Z88.8 Allergy status to other drugs, medicaments and biological substances; Z98.42 Cataract extraction status, left eye; Z98.41 Cataract extraction status, right eye; Z90.49 Acquired absence of other specified parts of digestive tract; Z98.84 Bariatric surgery status; Z90.11 Acquired absence of right breast and nipple
CPT/HCPCS: 82962; 97110-GP; 97116-GP; 97163-GP; 97165-GO; 97530-GP; 97535-GO; A9270-GY; Q0164